=== PATIENT | female | born 1985 | race Caucasian/White ===

== ENCOUNTER 2017-11-23 13:53 | Emergency (ER) | payer BC, MEDICAID ==
--- NOTE | 2017-11-23 15:00 | UC ---
Hannah Villarreal Gabriel, scribed for Lita Saleh MD on 11/23/17 at 1454 . FLU HPI - HPI Summary HPI Summary: This patient is a 32 year old F presenting to [facility] with a chief complaint of flu like illness that began 3 weeks ago. Pt states sx started with sinus congestion. Patient reports body aches, chills, fever, productive cough, frontal CRAFT, ear pain, and post nasal drip. Pt states at nigthttime coughing increases. Patient denies diarrhea, rashes, and blood in sputum. Patient has taken theraflu and aleksandar seltzer without relief. Last dose last night. Her LNMP was before 11/08/17 and she has her tubes tied. Additionally she reports positive exposure to sick persons. Pt denies rash. Pt + tobacco use ongoing. - History of Current Complaint Chief Complaint: UCGeneralIllness Stated Complaint: FLU COMPLAINT Time Seen by Provider: 11/23/17 14:45 Hx Obtained From: Patient Hx Last Menstrual Period: 11/06/17 ?: No Onset/Duration: Lasting Weeks - 3 Severity Currently: Mild Severity Initially: Mild Associated Signs & Symptoms: Positive: F/C, Myalgia, Cough, Headache - Allergy/Home Medications Allergies/Adverse Reactions: Allergies Allergy/AdvReac Type Severity Reaction Status Date / Time Latex Allergy Rash Verified 11/23/17 14:14 PMH/Surg Hx/FS Hx/Imm Hx Previously Healthy: Yes Other Cardiovascular History: HLD - Surgical History Surgical History: Yes Surgery Procedure, Year, and Place: tubal ligation - Family History Known Family History: Positive: Other - HLD - Social History Lives: With Family Alcohol Use: Weekly Substance Use Type: None Smoking Status (MU): Current Every Day Smoker Type: Cigarettes Amount Used/How Often: 1/2 ppd Review of Systems Constitutional: Fever, Chills Skin: Negative Eyes: Negative ENT: Ear Ache, Other - post nasal drip Respiratory: Cough Gastrointestinal: Vomiting Genitourinary: Negative Motor: Negative Neurovascular: Negative Musculoskeletal: Myalgia Neurological: Headache All Other Systems Reviewed And Are Negative: Yes Physical Exam Triage Information Reviewed: Yes Appearance: Well-Appearing, No Pain Distress, Well-Nourished Vital Signs: Initial Vital Signs Temp 98.6 F 11/23/17 14:14 Pulse 91 11/23/17 14:14 Resp 20 11/23/17 14:14 BP 122/95 11/23/17 14:14 Pulse Ox 97 11/23/17 14:14 Vital Signs Reviewed: Yes Eye Exam: Normal Eyes: Positive: Conjunctiva Clear ENT: Positive: Nasal congestion, TMs normal, Other - TM x 2 clear + PND uvula midline no erythema no exudate. Negative: Pharynx normal Dental Exam: Normal Neck exam: Normal Neck: Positive: Supple, Nontender, No Lymphadenopathy Respiratory Exam: Normal Respiratory: Positive: Chest non-tender, Lungs clear, Normal breath sounds, No respiratory distress Cardiovascular Exam: Normal Cardiovascular: Positive: RRR, No Murmur, Pulses Normal Abdominal Exam: Normal Abdomen Description: Positive: Nontender, No Organomegaly, Soft Bowel Sounds: Positive: Present Musculoskeletal Exam: Normal Musculoskeletal: Positive: Strength Intact Neurological Exam: Normal Neurological: Positive: Alert Psychological Exam: Normal Psychological: Positive: Normal Response To Family Skin Exam: Normal Flu Course/Dx - Course Course Of Treatment: Pt presents with sinus congestion. nasal congestion. PND. will check flu - pt request. Anticipate abx and flonase. pt comfortable and in agreement with plan - Differential Dx/Diagnosis Provider Diagnoses: sinusitis. cough Discharge - Discharge Plan Condition: Stable Disposition: HOME Prescriptions: Azithromycin TAB* [Zithromax TAB (Z-KAVEH) 250 mg #6 tabs] 2 tab PO .TODAY, THEN 1 DAILY #1 kaveh Fluticasone NASAL SPRAY 50MCG* [Flonase NASAL SPRAY 50MCG*] 2 spray BOTH NARES DAILY #1 btl Patient Education Materials: Rhinosinusitis (ED) Referrals: Ruchi Urbano [facility] [Primary Care Provider] - Additional Instructions: - Stay well hydrated. Drink plenty of non-alcoholic, non-caffinated beverages. - Take antibiotics and use nasal spray as prescribed - These infections are spread by secretions - do NOT share eating or drinking utensils - clean items you share with other people such as cell phones, computer mouse, TV remote, computer tablets, etc. After you have been on antibiotics for 2 days - change your toothbrush and your pillowcase. - Alternate ibuprofen (Advil, Motrin) 600mg and Tylenol every 3 hours for pain or fever. Take with food. Do NOT take for more than 4-5 days. - Okay to take over the counter cough medication such as Robitussin or Delsyum -humidify the room where you sleep to help with nasal congestion and nighttime cough - Call your doctor on Wednesday to schedule a follow-up appointment. Call your doctor or return with questions or concerns The documentation as recorded by the Hannah hartman Gabriel accurately reflects the service I personally performed and the decisions made by me, Lita Saleh MD.
== END 2017-11-23 15:05 | disposition home or self-care (01) ==
LOC: UCEAST 13:53
DX: J32.9 Chronic sinusitis, unspecified (principal); R05 Cough; E78.5 Hyperlipidemia, unspecified; Z91.040 Latex allergy status; F17.210 Nicotine dependence, cigarettes, uncomplicated
CPT/HCPCS: 87502; 99202; G0463

== ENCOUNTER 2019-09-21 02:59 | Emergency (ER) | payer SELFPAY ==
[2019-09-21] MEDS ORDERED: Ibuprofen TAB* 400 MG PO ONE (03:15)
--- NOTE | 2019-09-21 03:22 | ED ---
Back Pain - HPI Summary HPI Summary: 34 year old F presenting to [facility] complains of sharp right scapular pain after lifting a trash can, turning around, and hearing something pop in her back at 01 :45 today 09/21/19. No neck pain. The patient rates the pain 9/10 in severity. Symptoms aggravated by deep breathing, coughing, and turning her head to the right. Symptoms alleviated by nothing. No hx back problems. - History of Current Complaint Chief Complaint: EDBackInjuryPain Stated Complaint: R SIDE PAIN PER PT Time Seen by Provider: 09/21/19 03:07 Hx Obtained From: Patient Onset/Duration: Sudden Onset, Lasting Hours, Still Present Onset/Duration: Started Hours Ago, Still Present Timing: Constant Severity Initially: Severe Severity Currently: Severe Pain Intensity: 9 Pain Scale Used: 0-10 Numeric Character: Sharp - "stabbing" Aggravating Symptom(s): Movement - "turning head to the right", Cough, Other - taking deep breaths Alleviating Symptom(s): Nothing Associated Signs And Symptoms: Positive: Negative - neck pain - Risk Factors AAA Risk Factors: Negative TAD Risk Factors: Negative Cauda Equina Risk Factors: Negative Epidural Abscess Risk Factors: Negative - Allergies/Home Medications Allergies/Adverse Reactions: Allergies Allergy/AdvReac Type Severity Reaction Status Date / Time Latex, Natural Rubber Allergy Rash Verified 09/21/19 03:02 PMH/Surg Hx/FS Hx/Imm Hx Endocrine/Hematology History: Denies: Hx Diabetes, Hx Thyroid Disease Cardiovascular History: Denies: Hx Hypertension Respiratory History: Denies: Hx Asthma, Hx Chronic Obstructive Pulmonary Disease (COPD) GI History: Denies: Hx Ulcer - Surgical History Surgery Procedure, Year, and Place: tubal ligation Infectious Disease History: No Infectious Disease History: Denies: Hx Clostridium Difficile, Hx Hepatitis, Hx Human Immunodeficiency Virus (HIV), Hx of Known/Suspected MRSA, Hx Shingles, Hx Tuberculosis, Hx Known/ Suspected VRE, Traveled Outside the [place] in Last 30 Days - Family History Known Family History: Positive: Other - HLD - Social History Alcohol Use: Occasionally Substance Use Type: Reports: None Hx Tobacco Use: Yes Smoking Status (MU): Heavy Every Day Tobacco Smoker Type: Cigarettes Amount Used/How Often: 1/2 ppd Review of Systems Negative: Fever Musculoskeletal: Negative - back pain Positive: Other - pain in right shoulder blade All Other Systems Reviewed And Are Negative: Yes Physical Exam - Summary Physical Exam Summary: Appearance: Well-appearing, Well-nourished, lying in bed comfortable Skin: Warm, dry, no obvious rash Eyes: sclera anicteric, no conjunctival pallor ENT: mucous membranes moist Neck: deferred Respiratory: No signs of respiratory distress Cardiovascular: Appears well perfused, pulses are nml Abdomen: deferred Back: Tender about muscles around right scapula. There is pain with ROM of her arms. ROM is not limited. Musculoskeletal: Moving all 4 extremities without obvious discomfort Neurological: Awake and alert, mentation is normal, speech is fluent and appropriate Psychiatric: affect is normal, does not appear anxious or depressed Triage Information Reviewed: Yes Vital Signs On Initial Exam: Initial Vitals Temp Pulse Resp BP Pulse Ox 97.0 F 81 18 153/109 99 09/21/19 03:00 09/21/19 03:00 09/21/19 03:00 09/21/19 03:00 09/21/19 03:00 Vital Signs Reviewed: Yes Musculoskeletal: Positive: Other - right shoulder pain which causes pain when taking deep breaths or coughing and turning her head to the right Procedures - Sedation Patient Received Moderate/Deep Sedation with Procedure: No Diagnostics - Vital Signs Vital Signs Temp Pulse Resp BP Pulse Ox 09/21/19 03:00 97.0 F 81 18 153/109 99 - Laboratory Lab Statement: Any lab studies that have been ordered have been reviewed, and results considered in the medical decision making process. - Radiology CXR Radiology Interpretation Completed By: ED Physician Summary of Radiographic Findings: No acute process. Pending offical report from radiologist. Back Pain Course/Dx - Course Course Of Treatment: 34 year old F complains of sharp right scapular pain after lifting a trash can, turning around, and hearing something pop in her back at 01 :45 today 09/21/19. Physical exam findings: Tender about muscles around right scapula. There is pain with ROM of her arms. ROM is not limited. CXR shows no acute process, ED physician. In the ED course, the patient was given a Motrin 400 mg PO. Patient will be discharged home with follow up from Dr.Kenneth Hernandez. Patient was instructed to return to Emergency Department for new or worsening symptoms. Patient understands and is agreeable to this plan. - Diagnoses Provider Diagnoses: Strain of thoracic back region Discharge ED - Sign-Out/Discharge Documenting (check all that apply): Patient Departure - discharge - Discharge Plan Condition: Good Disposition: HOME Patient Education Materials: Thoracic Back Strain (ED) Referrals: Franklyn Hernandez MD [Medical Doctor] - Additional Instructions: The pain should start to ease over the next few days. The chest x ray was normal. You can take OTC pain medication for the pain in the meantime. Dr. Hernandez is an occupational health specialist who would be good to followup with, call the office in the am. - Billing Disposition and Condition Condition: GOOD Disposition: Home - Attestation Statements Document Initiated by Kvng: Yes Documenting Scribe: Mabel Abel Provider For Whom Kvng is Documenting (Include Credential): Cornelius Mccartney MD Scribe Attestation: Sonny Villarreal Tiffany Liu, scribed for Cornelius Mccartney MD on 09/21/19 at 0514. Scribe Documentation Reviewed: Yes Provider Attestation: The documentation as recorded by the Sonny hartman Tiffany Liu accurately reflects the service I personally performed and the decisions made by Cornelius hassan MD Status of Scribsamuel Document: Viewed
[2019-09-21 04:23] VITALS: BP 127/81
== END 2019-09-21 04:20 | disposition home or self-care (01) ==
LOC: ED 02:59
DX: S29.012A Strain of muscle and tendon of back wall of thorax, initial encounter (principal); X50.0XXA Overexertion from strenuous movement or load, initial encounter; Y92.9 Unspecified place or not applicable; F17.210 Nicotine dependence, cigarettes, uncomplicated; Z91.040 Latex allergy status
CPT/HCPCS: 71046; 99282; A9270-GY